=== PATIENT | male | born 1965 | race Caucasian/White ===

== ENCOUNTER 2021-06-03 16:27 | Inpatient (IN) | payer MEDICAID ==
[~2021-06-03] VITALS: Ht 160 cm; Wt 92.1 kg
[2021-06-03 18:16] LABS: BASOPHILS % (AUTO) 0.3 % (0.0-2.0); EOSINOPHILS % (AUTO) 0 % (1.0-6.0); LYMPHOCYTES % (AUTO) 8.1 % (22.0-44.0); MEAN CORPUSCULAR HEMOGLOBIN 26.8 pg (26.0-34.0); MEAN CORPUSCULAR HGB CONC 33.4 G/dL (31.0-37.0); MEAN CORPUSCULAR VOLUME 80 fL (80-100); MONOCYTES # (AUTO) 0.6 K/uL (0.1-1.0); MONOCYTES % (AUTO) 4.8 % (2.0-9.0); NEUTROPHILS # (AUTO) 10.2 K/uL (1.8-7.7); PLATELET COUNT (AUTO) 283 K/uL (150-450); RED CELL DISTRIBUTION WIDTH 13.4 % (11.5-14.5)
[2021-06-03] MEDS ORDERED: CAPT12.55 PO (18:16)
[2021-06-03] MEDS ORDERED: METF-1211 PO (18:16)
[2021-06-03 18:21] LABS: NEUTROPHILS % (AUTO) 86.8 % (40.0-70.0)
[2021-06-03 18:29] LABS: ANION GAP 12 mmol/L (8-16); CARBON DIOXIDE 21 mmol/L (22-29); CHLORIDE 100 mmol/L (98-107); CREATININE 0.72 mg/dL (0.60-1.30); GLOMERULAR FILTR. RATE CALC > 60 mL/min (>60); GLUCOSE,RANDOM 307 mg/dL (70-110); POTASSIUM 3.8 mmol/L (3.5-5.1); SODIUM SERUM 133 mmol/L (136-145); UREA NITROGEN, BLOOD 14 mg/dL (7-18)
[2021-06-03 18:47] LABS: B-TYPE NATRIURETIC PEPTIDE 17 pg/mL (0-100)
[2021-06-03 18:54] LABS: ALANINE AMINOTRANSFERASE 20 U/L (12-78); ALBUMIN 3.6 g/dL (3.4-5.0); ALKALINE PHOSPHATASE 86 U/L (46-116); ASPARTATE AMINOTRANSFERASE 15 U/L (15-37); BILIRUBIN,TOTAL 0.3 mg/dL (0.1-1.0); CREATINE KINASE, TOTAL ONLY 94 U/L (39-308); LIPASE 72 U/L (73-393); TOTAL PROTEIN, SERUM 7.6 g/dL (6.4-8.2)
[2021-06-03] MEDS ORDERED: SODIUM CHLORIDE 0.9% 100 ML ONE (19:20)
[2021-06-03] MEDS ORDERED: IOHEXOL 350 MG/ML 100 ML VIAL ONE (19:20)
[2021-06-03] MEDS ORDERED: SODIUM CHLORIDE 0.9% 1,000 ML IV ONE (20:00)
[2021-06-03] MEDS ORDERED: ACETAMINOPHEN 325 MG TABLET PO PRN (21:15)
[2021-06-03] MEDS ORDERED: 0.9% SODIUM CHLORIDE 10 ML SYRINGE IVP PRN (21:15)
[2021-06-03] MEDS ORDERED: ONDANSETRON HCL 4 MG/2 ML VIAL IVP PRN (21:15)
[2021-06-03] MEDS ORDERED: ATORVASTATIN CALCIUM 40 MG TABLET PO SCH (21:15)
[2021-06-03] MEDS ORDERED: DEXTROSE 50%-WATER 25 GM/50 ML SYRINGE IVP PRN (21:15)
[2021-06-03] MEDS ORDERED: ASPIRIN 325 MG TABLET PO SCH (21:15)
[2021-06-03] MEDS ORDERED: CARVEDILOL 12.5 MG TABLET PO SCH (21:15)
[2021-06-03 21:40] LABS: COVID AG,FIA SOURCE NASOPHARYNGEAL
[2021-06-03 21:51] LABS: APPEARANCE,URINE CLEAR (CLEAR); BILIRUBIN,URINE NEGATIVE (NEGATIVE); GLUCOSE, URINE (UA) >=1000 mg/dL (NEGATIVE); KETONES,URINE >=80 mg/dL (NEGATIVE); LEUKOCYTE ESTERASE ,URINE NEGATIVE (NEGATIVE); NITRATE,URINE NEGATIVE (NEGATIVE); OCCULT BLOOD,URINE NEGATIVE (NEGATIVE); PROTEIN,URINE NEGATIVE (NEGATIVE); UROBILINOGEN,URINE 0.2 mg/dL (<=1.0)
[2021-06-03 21:52] LABS: RBC,URINE 0-2 /HPF (0-2); WBC,URINE 0-2 /HPF (0-5)
[2021-06-03 21:53] LABS: BACTERIA,URINE Rare /HPF (None Seen)
[2021-06-03] MEDS ORDERED: OxyCODONE HCL/ACETAMINOPHEN 5-325 MG TABLET PO PRN (22:00)
[2021-06-03] MEDS ORDERED: BISACODYL 10 MG RECTAL RECTAL SUPPOSITORY PR PRN (22:00)
[2021-06-03] MEDS ORDERED: CLOPIDOGREL BISULFATE 75 MG TABLET PO ONE (22:45)
[2021-06-03] MEDS ORDERED: ASPIRIN 81 MG CHEWABLE TABLET PO ONE (22:45)
[2021-06-04] VITALS (7 sets, daily range): BP systolic 136–178; BP diastolic 80–103
[2021-06-04] MEDS: HEPARIN SODIUM,PORCINE 5,000 UNITS/ML VIAL SQ SCH ×4 (00:40→20:29)
[2021-06-04 00:58] LABS: GLUCOMETER DEV NAME(LOC) 5S.2B; GLUCOSE,POINT OF CARE 259 MG/DL (70-110)
[2021-06-04] MEDS: INSULIN LISPRO 100 UNITS/ML SQ PRN ×4 (06:01→20:32)
[2021-06-04 06:45] LABS: HEMOGLOBIN A1C 11.5 % (3.8-5.6)
[2021-06-04 07:35] LABS: GLUCOMETER DEV NAME(LOC) 5S.2B; GLUCOSE,POINT OF CARE 227 MG/DL (70-110)
[2021-06-04] MEDS ORDERED: MetFORMIN HCL 850 MG TABLET PO SCH (08:00)
[2021-06-04] MEDS: MetFORMIN HCL 850 MG TABLET PO SCH ×2 (08:00→17:03)
[2021-06-04] MEDS: DOCUSATE SODIUM 100 MG CAPSULE PO SCH ×2 (09:04→20:32)
[2021-06-04] MEDS: CARVEDILOL 12.5 MG TABLET PO SCH ×3 (09:05→21:00)
[2021-06-04] MEDS: AmLODIPine BESYLATE 5 MG TABLET PO SCH (09:05)
[2021-06-04] MEDS: FAMOTIDINE 20 MG TABLET PO SCH (09:05)
[2021-06-04] MEDS: HydrALAZINE HCL 20 MG/ML VIAL IVP PRN ×2 (11:41→23:29)
[2021-06-04] MEDS ORDERED: MORPHINE SULFATE 2 MG/ML SYRINGE IVP PRN (11:45)
[2021-06-04] MEDS ORDERED: ONDANSETRON HCL 4 MG/2 ML VIAL IM PRN (12:45)
[2021-06-04] MEDS ORDERED: ONDANSETRON HCL 4 MG/2 ML VIAL IVP PRN (12:45)
[2021-06-04] MEDS ORDERED: ONDANSETRON HCL 4 MG/2 ML VIAL ONE (12:47)
[2021-06-04 13:55] LABS: GLUCOMETER DEV NAME(LOC) 5S.1; GLUCOSE,POINT OF CARE 230 MG/DL (70-110)
[2021-06-04] MEDS: ATORVASTATIN CALCIUM 40 MG TABLET PO SCH ×2 (20:32→21:00)
[2021-06-04 20:53] LABS: GLUCOMETER DEV NAME(LOC) 5S.2B; GLUCOSE,POINT OF CARE 259 MG/DL (70-110)
[2021-06-05] MEDS ORDERED: MANNITOL IV SCH (03:15)
[2021-06-05 03:20] LABS: BASOPHILS % (AUTO) 0.2 % (0.0-2.0); EOSINOPHILS % (AUTO) 0 % (1.0-6.0); HEMOGLOBIN 16.2 g/dL (13.5-17.5); LYMPHOCYTES # (AUTO) 0.5 K/uL (1.0-4.8); LYMPHOCYTES % (AUTO) 3.3 % (22.0-44.0); MEAN CORPUSCULAR HEMOGLOBIN 27.4 pg (26.0-34.0); MEAN CORPUSCULAR HGB CONC 33.7 G/dL (31.0-37.0); MEAN CORPUSCULAR VOLUME 81 fL (80-100); MONOCYTES # (AUTO) 0.7 K/uL (0.1-1.0); MONOCYTES % (AUTO) 4.5 % (2.0-9.0); NEUTROPHILS # (AUTO) 13.8 K/uL (1.8-7.7); PLATELET COUNT (AUTO) 341 K/uL (150-450); RED BLOOD CELL COUNT(AUTO) 5.91 MIL/uL (4.50-5.90); RED CELL DISTRIBUTION WIDTH 13.7 % (11.5-14.5)
[2021-06-05 03:30] LABS: ANION GAP 19 mmol/L (8-16); CALCIUM, TOTAL 9.2 mg/dL (8.8-10.5); CARBON DIOXIDE 19 mmol/L (22-29); CHLORIDE 96 mmol/L (98-107); CREATININE 0.74 mg/dL (0.60-1.30); GLOMERULAR FILTR. RATE CALC > 60 mL/min (>60); GLUCOSE,RANDOM 268 mg/dL (70-110); POTASSIUM 3.1 mmol/L (3.5-5.1); SODIUM SERUM 134 mmol/L (136-145); UREA NITROGEN, BLOOD 17 mg/dL (7-18)
[2021-06-05] MEDS ORDERED: NiCARDipine HCL 25 MG in DEXTROSE 5%-WATER 240 ML IV PRN (03:30)
[2021-06-05] MEDS ORDERED: DESMOPRESSIN ACETATE 20 MCG in SODIUM CHLORIDE 0.9% 50 ML IV ONE (03:30)
[2021-06-05 03:32] LABS: INR 1.1 (0.9-1.1); PROTHROMBIN TIME 11.4 SEC (9.4-11.6)
[2021-06-05 03:33] LABS: ALANINE AMINOTRANSFERASE 24 U/L (12-78); ALBUMIN 3.9 g/dL (3.4-5.0); ALKALINE PHOSPHATASE 103 U/L (46-116); ASPARTATE AMINOTRANSFERASE 29 U/L (15-37); BILIRUBIN,TOTAL 0.6 mg/dL (0.1-1.0); TOTAL PROTEIN, SERUM 8.6 g/dL (6.4-8.2)
[2021-06-05] MEDS: PROTAMINE SULFATE 10 MG/ML 5 ML VIAL IVP ONE ×2 (03:47→03:59)
[2021-06-05] MEDS ORDERED: PROPOFOL 1000 MG/ISO-OSM 100 ML ONE (04:20)
[2021-06-05] MEDS ORDERED: FentaNYL CITRATE PF 100 MCG/2 ML VIAL ONE (04:21)
[2021-06-05] MEDS ORDERED: FentaNYL CITRATE PF 100 MCG/2 ML VIAL IVP ONE ×2 (04:30→05:15)
[2021-06-05] MEDS: PROPOFOL 1000 MG/ISO-OSM 100 ML IV PRN ×3 (04:35→14:16)
[2021-06-05] MEDS ORDERED: ROCURONIUM BROMIDE 10 MG/ML 5 ML VIAL ONE (04:37)
[2021-06-05 04:43] VITALS: BP 119/72
[2021-06-05] MEDS ORDERED: PROPOFOL 1000 MG/ISO-OSM 100 ML IV PRN (04:45)
[2021-06-05 05:09] LABS: ABG BASE EXCESS -9.9 mmol/L (-2.0-3.0); ABG CARBOXYHEMOGLOBIN 0.5 % (0.0-1.5); ABG HCO3 17.8 mmol/L (22.0-26.0); ABG METHEMOGLOBIN 0.3 % (0.0-1.5); ABG OXYGEN CONTENT 21.5 mL/dL (15.0-23.0); ABG OXYGEN SATURATION 96.3 % (95.0-98.0); ABG OXYHEMOGLOBIN 95.5 % (94.0-100.0); ABG PCO2 31 mmHg (35-45); ABG PH 7.327 (7.35-7.450); PO2, ARTERIAL BG 90.4 mmHg (84.0-92.0); SITE, BLOOD GAS RT BRACHIAL; SOURCE, BLOOD GAS ARTERIAL; TEMPERATURE, FAHRENHEIT, BG 99.9 FAHREN (96.0-98.6)
[2021-06-05 05:10] LABS: O2 DEVICE,BLOOD GAS VENTILATOR (ROOM AIR); PEEP,BG 5 cm H2O; VT, ABG 450 ml
[2021-06-05] MEDS: FentaNYL CIT 1000MCG/0.9% NACL 100 ML IV PRN ×3 (05:35→16:12)
[2021-06-05] MEDS: INSULIN LISPRO 100 UNITS/ML SQ PRN ×4 (07:06→23:51)
[2021-06-05] MEDS: OXYGEN THERAPY IH SCH ×2 (07:35→20:34)
[2021-06-05 08:00] VITALS: BP 92/62
[2021-06-05] MEDS: MetFORMIN HCL 850 MG TABLET PO SCH ×2 (08:00→17:07)
[2021-06-05] MEDS: DOCUSATE SODIUM 100 MG CAPSULE PO SCH ×2 (08:33→20:34)
[2021-06-05] MEDS: FAMOTIDINE 20 MG TABLET PO SCH (08:33)
[2021-06-05] MEDS: CARVEDILOL 12.5 MG TABLET PO SCH ×2 (08:34→21:00)
[2021-06-05] MEDS: AmLODIPine BESYLATE 5 MG TABLET PO SCH (08:34)
[2021-06-05 09:13] LABS: GLUCOMETER DEV NAME(LOC) 5S.1; GLUCOSE,POINT OF CARE 253 MG/DL (70-110)
[2021-06-05 09:13] LABS: GLUCOMETER DEV NAME(LOC) 5S.1; GLUCOSE,POINT OF CARE 223 MG/DL (70-110)
[2021-06-05 09:13] LABS: GLUCOMETER DEV NAME(LOC) 5S.1; GLUCOSE,POINT OF CARE 233 MG/DL (70-110)
[2021-06-05] MEDS: ACETAMINOPHEN 325 MG TABLET PO PRN (10:06)
[2021-06-05] MEDS ORDERED: POTASSIUM CHL 10 MEQ/WATER 50 ML IV PRN (11:15)
[2021-06-05] MEDS: POTASSIUM CHLORIDE 20 MEQ ER TABLET PO PRN (12:17)
[2021-06-05 12:47] VITALS: BP 117/74
[2021-06-05 16:00] VITALS: BP 124/80
[2021-06-05] MEDS ORDERED: MORPHINE SULFATE 2 MG/ML SYRINGE IVP PRN (17:15)
[2021-06-05] MEDS ORDERED: 0.9% SODIUM CHLORIDE 10 ML SYRINGE IVP ONE (17:45)
[2021-06-05] MEDS ORDERED: 0.9% SODIUM CHLORIDE 1,000 ML BAG IV ONE (17:45)
[2021-06-05] MEDS: SODIUM CHLORIDE 3% 500 ML IV SCH (19:53)
[2021-06-05 20:00] VITALS: BP 112/76
[2021-06-05] MEDS: ATORVASTATIN CALCIUM 40 MG TABLET PO SCH (21:00)
[2021-06-05] MEDS: ETHYL ALCOHOL 62% ANTISEPTIC NASAL INHALANT 0.6 ML AMPUL NASAL SCH (22:54)
[2021-06-06] VITALS (10 sets, daily range): BP systolic 90–116; BP diastolic 64–85
[2021-06-06 00:12] LABS: APPEARANCE,URINE CLOUDY (CLEAR); GLUCOSE, URINE (UA) >=1000 mg/dL (NEGATIVE); KETONES,URINE 15 mg/dL (NEGATIVE); LEUKOCYTE ESTERASE ,URINE NEGATIVE (NEGATIVE); NITRATE,URINE NEGATIVE (NEGATIVE); OCCULT BLOOD,URINE NEGATIVE (NEGATIVE); PROTEIN,URINE POS 1+ (NEGATIVE); UROBILINOGEN,URINE 0.2 mg/dL (<=1.0)
[2021-06-06] MEDS ORDERED: NOREPINEPHRINE 4 MG/D5%-WATER 250 ML IV PRN (00:15)
[2021-06-06 00:17] LABS: AMPHET/METH SCREEN,URINE NEGATIVE (NEGATIVE); BARBITURATE SCREEN, URINE NEGATIVE (NEGATIVE); BENZODIAZEPINES SCREEN,URINE NEGATIVE (NEGATIVE); CANNABINOID SCREEN,URINE NEGATIVE (NEGATIVE); COCAINE SCREEN,URINE NEGATIVE (NEGATIVE); METHADONE SCREEN, URINE NEGATIVE (NEGATIVE); OPIATE SCREEN,URINE NEGATIVE (NEGATIVE)
[2021-06-06] MEDS: NOREPINEPHRINE 4 MG/D5%-WATER 250 ML IV PRN ×4 (00:18→22:27)
[2021-06-06 00:38] LABS: BILIRUBIN,URINE PRELIM. POSITIVE (NEGATIVE); PHENCYCLIDINE SCREEN,URINE NEGATIVE (NEGATIVE)
[2021-06-06 00:40] LABS: BACTERIA,URINE Few /HPF (None Seen); RBC,URINE 0-2 /HPF (0-2); WBC,URINE 0-2 /HPF (0-5)
[2021-06-06] MEDS: FentaNYL CIT 1000MCG/0.9% NACL 100 ML IV PRN (05:55)
[2021-06-06 06:01] LABS: CALCIUM, TOTAL 9.4 mg/dL (8.8-10.5); CARBON DIOXIDE 21 mmol/L (22-29); CHLORIDE 105 mmol/L (98-107); GLOMERULAR FILTR. RATE CALC > 60 mL/min (>60); GLUCOSE,RANDOM 310 mg/dL (70-110); UREA NITROGEN, BLOOD 23 mg/dL (7-18)
[2021-06-06 06:10] LABS: ANION GAP 14 mmol/L (8-16); POTASSIUM 3.2 mmol/L (3.5-5.1); SODIUM SERUM 140 mmol/L (136-145)
[2021-06-06] MEDS: INSULIN LISPRO 100 UNITS/ML SQ PRN ×4 (06:43→23:41)
[2021-06-06] MEDS: CARVEDILOL 12.5 MG TABLET PO SCH ×2 (09:00→21:00)
[2021-06-06] MEDS: AmLODIPine BESYLATE 5 MG TABLET PO SCH (09:00)
[2021-06-06] MEDS: POTASSIUM CHLORIDE 20 MEQ ER TABLET PO PRN (09:50)
[2021-06-06] MEDS: SODIUM CHLORIDE 3% 500 ML IV SCH (09:50)
[2021-06-06] MEDS: MetFORMIN HCL 850 MG TABLET PO SCH ×2 (09:50→18:42)
[2021-06-06] MEDS: DOCUSATE SODIUM 100 MG CAPSULE PO SCH ×2 (09:50→22:10)
[2021-06-06] MEDS: ETHYL ALCOHOL 62% ANTISEPTIC NASAL INHALANT 0.6 ML AMPUL NASAL SCH ×2 (09:50→22:12)
[2021-06-06] MEDS: FAMOTIDINE 20 MG TABLET PO SCH (09:51)
[2021-06-06] MEDS: OXYGEN THERAPY IH SCH ×2 (09:52→20:00)
[2021-06-06] MEDS ORDERED: VASOPRESSIN 40 UNITS in DEXTROSE 5%-WATER 98 ML IV PRN (15:15)
[2021-06-06 21:33] LABS: GLUCOSE,POINT OF CARE 284 MG/DL (70-110)
[2021-06-06 21:33] LABS: GLUCOSE,POINT OF CARE 218 MG/DL (70-110)
[2021-06-06 21:33] LABS: GLUCOSE,POINT OF CARE 267 MG/DL (70-110)
[2021-06-06 21:33] LABS: GLUCOSE,POINT OF CARE 235 MG/DL (70-110)
[2021-06-06 21:33] LABS: GLUCOSE,POINT OF CARE 250 MG/DL (70-110)
[2021-06-06 21:34] LABS: GLUCOSE,POINT OF CARE 203 MG/DL (70-110)
[2021-06-06] MEDS: ATORVASTATIN CALCIUM 40 MG TABLET PO SCH (22:10)
[2021-06-07] VITALS: BP_SYST 88; BP_SYST 93; BP_DIAS 54; BP_DIAS 60
[2021-06-07 01:06] LABS: GLUCOSE,POINT OF CARE 253 MG/DL (70-110)
[2021-06-07 02:00] VITALS: BP 95/62
[2021-06-07] MEDS: SODIUM CHLORIDE 3% 500 ML IV SCH (03:42)
[2021-06-07 04:00] VITALS: BP 98/63
[2021-06-07 06:00] VITALS: BP 92/58
[2021-06-07] MEDS: OXYGEN THERAPY IH SCH (07:50)
[2021-06-07] MEDS: MetFORMIN HCL 850 MG TABLET PO SCH (07:51)
[2021-06-07] MEDS: ACETAMINOPHEN 325 MG TABLET PO PRN (07:51)
[2021-06-07] MEDS: DOCUSATE SODIUM 100 MG CAPSULE PO SCH (07:51)
[2021-06-07] MEDS: NOREPINEPHRINE 4 MG/D5%-WATER 250 ML IV PRN ×2 (07:54→14:08)
[2021-06-07] MEDS: ETHYL ALCOHOL 62% ANTISEPTIC NASAL INHALANT 0.6 ML AMPUL NASAL SCH (07:55)
[2021-06-07] MEDS ORDERED: SODIUM CHLORIDE 0.9% 1,000 ML ONE (08:19)
[2021-06-07] MEDS: AmLODIPine BESYLATE 5 MG TABLET PO SCH (08:39)
[2021-06-07] MEDS: CARVEDILOL 12.5 MG TABLET PO SCH (08:39)
[2021-06-07] MEDS: FAMOTIDINE 20 MG TABLET PO SCH (09:00)
[2021-06-07] MEDS ORDERED: SODIUM CHLORIDE 0.9% 500 ML IV ONE (09:24)
[2021-06-07 09:33] LABS: BASOPHILS % (AUTO) 0.4 % (0.0-2.0); EOSINOPHILS % (AUTO) 1.2 % (1.0-6.0); HEMATOCRIT 46.2 % (41-53); HEMOGLOBIN 14.9 g/dL (13.5-17.5); LYMPHOCYTES # (AUTO) 1.4 K/uL (1.0-4.8); LYMPHOCYTES % (AUTO) 11.7 % (22.0-44.0); MEAN CORPUSCULAR HEMOGLOBIN 27.3 pg (26.0-34.0); MEAN CORPUSCULAR HGB CONC 32.3 G/dL (31.0-37.0); MEAN CORPUSCULAR VOLUME 84 fL (80-100); MONOCYTES # (AUTO) 0.9 K/uL (0.1-1.0); MONOCYTES % (AUTO) 7.9 % (2.0-9.0); NEUTROPHILS # (AUTO) 9.3 K/uL (1.8-7.7); NEUTROPHILS % (AUTO) 78.8 % (40.0-70.0); PLATELET COUNT (AUTO) 250 K/uL (150-450); RED BLOOD CELL COUNT(AUTO) 5.47 MIL/uL (4.50-5.90); RED CELL DISTRIBUTION WIDTH 14.4 % (11.5-14.5)
[2021-06-07] MEDS ORDERED: SODIUM CHLORIDE 0.9% 250 ML IV ONE (09:47)
[2021-06-07 09:48] LABS: ALBUMIN 2.6 g/dL (3.4-5.0); BILIRUBIN,TOTAL 0.6 mg/dL (0.1-1.0); CALCIUM, TOTAL 10.1 mg/dL (8.8-10.5); CREATININE 1.35 mg/dL (0.60-1.30); TOTAL PROTEIN, SERUM 7.5 g/dL (6.4-8.2)
[2021-06-07] MEDS ORDERED: SODIUM CHLORIDE 0.9% 1,000 ML IV SCH (11:45)
[2021-06-07] MEDS ORDERED: PHENYLEPHRINE 200 MG/D5%-WATER 250 ML IV PRN (13:30)
[2021-06-07] MEDS: INSULIN LISPRO 100 UNITS/ML SQ PRN ×2 (13:42→17:28)
[2021-06-07 13:44] LABS: GLUCOSE,POINT OF CARE 354 MG/DL (70-110)
[2021-06-07] MEDS: POTASSIUM CHLORIDE 20 MEQ ER TABLET PO PRN (14:07)
[2021-06-07] MEDS ORDERED: VASOPRESSIN 40 UNITS in DEXTROSE 5%-WATER 98 ML IV PRN (14:34)
[2021-06-07 15:25] LABS: ABG BASE EXCESS -10.9 mmol/L (-2.0-3.0); ABG CARBOXYHEMOGLOBIN 0.7 % (0.0-1.5); ABG HCO3 16.2 mmol/L (22.0-26.0); ABG METHEMOGLOBIN 0.3 % (0.0-1.5); ABG OXYGEN CONTENT 19.9 mL/dL (15.0-23.0); ABG OXYGEN SATURATION 94.1 % (95.0-98.0); ABG OXYHEMOGLOBIN 93.2 % (94.0-100.0); ABG PCO2 43 mmHg (35-45); ABG PH 7.216 (7.35-7.450); ABG TOTAL HEMOGLOBIN 15.2 G/dL (12.0-18.0); PO2, ARTERIAL BG 76.9 mmHg (84.0-92.0); SOURCE, BLOOD GAS ARTERIAL
[2021-06-07 15:26] LABS: SITE, BLOOD GAS ARTERIAL LINE; VT, ABG 450 ml
[2021-06-07 15:27] LABS: O2 DEVICE,BLOOD GAS VENTILATOR (ROOM AIR); PEEP,BG 8 cm H2O
[2021-06-07 16:32] LABS: ABG BASE EXCESS -9.6 mmol/L (-2.0-3.0); ABG CARBOXYHEMOGLOBIN 0.9 % (0.0-1.5); ABG HCO3 17.4 mmol/L (22.0-26.0); ABG METHEMOGLOBIN 0.3 % (0.0-1.5); ABG OXYGEN CONTENT 20.1 mL/dL (15.0-23.0); ABG OXYGEN SATURATION 94.7 % (95.0-98.0); ABG OXYHEMOGLOBIN 93.6 % (94.0-100.0); ABG PCO2 38 mmHg (35-45); ABG PH 7.272 (7.35-7.450); ABG TOTAL HEMOGLOBIN 15.3 G/dL (12.0-18.0); PO2, ARTERIAL BG 76.2 mmHg (84.0-92.0); SOURCE, BLOOD GAS ARTERIAL; TEMPERATURE, FAHRENHEIT, BG 98.6 FAHREN (96.0-98.6)
[2021-06-07 16:33] LABS: SITE, BLOOD GAS LFT RADIAL
[2021-06-07 16:34] LABS: O2 DEVICE,BLOOD GAS VENTILATOR (ROOM AIR); PEEP,BG 8 cm H2O; VT, ABG 600 ml
[2021-06-07 17:31] LABS: GLUCOSE,POINT OF CARE 257 MG/DL (70-110)
== END 2021-06-07 19:00 | disposition short-term general hospital (02) | DRG 64 ==
LOC: EMS 16:27 → 5S 21:00 → ICU 06-05 03:24
PROVIDERS: ADMIT Internal Medicine; ATTEND Internal Medicine
PROC: 0BH17EZ Insertion of Endotracheal Airway into Trachea, Via Natural or Artificial Opening (ICD-10-PCS; principal; 2021-06-05)
PROC: 5A1945Z Respiratory Ventilation, 24-96 Consecutive Hours (ICD-10-PCS; 2021-06-05)
DX: I63.511 Cerebral infarction due to unspecified occlusion or stenosis of right middle cerebral artery (principal); I61.9 Nontraumatic intracerebral hemorrhage, unspecified; G93.5 Compression of brain; G81.94 Hemiplegia, unspecified affecting left nondominant side; E87.1 Hypo-osmolality and hyponatremia; N17.9 Acute kidney failure, unspecified; E11.65 Type 2 diabetes mellitus with hyperglycemia; I10 Essential (primary) hypertension; R29.810 Facial weakness; E66.01 Morbid (severe) obesity due to excess calories; E78.5 Hyperlipidemia, unspecified; D72.829 Elevated white blood cell count, unspecified; H57.02 Anisocoria; E87.6 Hypokalemia; Z20.822 Contact with and (suspected) exposure to COVID-19; Z86.73 Personal history of transient ischemic attack (TIA), and cerebral infarction without residual deficits; Z83.3 Family history of diabetes mellitus; Z68.36 Body mass index [BMI] 36.0-36.9, adult; Z79.84 Long term (current) use of oral hypoglycemic drugs
CPT/HCPCS: 36600; 70450; 70496; 70498; 70551; 71045; 74230; 78606; 80048; 80053; 80061; 80307; 81001; 82550; 82805; 82962; 83036; 83690; 83735; 83880; 83935; 84132; 84295; 84300; 84484; 85025; 85610; 85730; 86850; 86900; 86901; 87070; 87077; 87081; 87205; 92610; 92611; 93005; 93306; 93880; 94002; 94003; 97163; 97166; 97535; 99285; A9521; G0378; J0360; J1644; J2270; J2370; J2405; J2597; J2704; J2720; J3010; J3490; J7030; J7040; J7050; J7060; Q9967; 36415-L1; 36415-TC